=== PATIENT | female | born 1985 ===

== ENCOUNTER 2023-06-29 15:06 | Outpatient (CLI) | payer BC, SELFPAY ==
--- NOTE | ~2023-06-29 | MR_ITS ---
MRI of the cervical spine Clinical History: Radiculopathy Technique: Axial T2-weighted and gradient images, and sagittal T1-weighted, T2-weighted, and STIR feroz ges were acquired. Findings: There is mild reversal of the normal cervical lordosis. No fracture or subluxation evident. No focal bone marrow signal abnormality seen. No significant disc bulge or herniation seen at any cervical level. No spinal canal stenosis, cord co mpression, or neural foraminal narrowing the cervical spine. Paravertebral soft tissues are unremarkable. No abnormal signal seen in the spinal cord. Impression: Mild reversal of the normal cervical lordosis, otherwise unremarkable exam. Reviewed, dictated and finalized at location . Impression: Mild reversal of the normal cervical lordosis, otherwise unremarkable exam.
== END 2023-06-29 15:07 ==
PROVIDERS: PCP Nurse Practitioner Family; Visit Provider Nurse Practitioner Family
DX: M54.12 Radiculopathy, cervical region (principal)
CPT/HCPCS: 72141